=== PATIENT | female | born 1975 | race Two or more races ===

== ENCOUNTER 2018-06-30 15:15 | Emergency (ER) | payer MEDICAID ==
--- NOTE | 2018-06-30 16:08 | EDPHY ---
H & P Stated Complaint: Migraine c Hx of s/s, 3D s relief Time Seen by Provider: 06/30/18 16:07 - Personal History Current Tetanus/Diphtheria Vaccine: Unsure - Medical/Surgical History Hx Asthma: No Hx Chronic Respiratory Disease: No Hx Diabetes: No Hx Cardiac Disease: No Hx Renal Disease: No Hx Cirrhosis: No Hx Alcoholism: No Hx HIV/AIDS: No Hx Splenectomy or Spleen Trauma: No Other PMH: migraines - Social History Smoking Status: Never smoked Constitutional: Initial Vital Signs Temperature (C) 36.8 C 06/30/18 15:35 Heart Rate 63 06/30/18 15:35 Respiratory Rate 18 06/30/18 15:35 Blood Pressure 122/85 H 06/30/18 15:35 O2 Sat (%) 98 06/30/18 15:35 O2 Delivery Mode Room Air Allergies/Adverse Reactions: No Known Allergies Allergy (Unverified 06/30/18 15:34) Medical Decision Making - Diagnostics Imaging Results: Imaging Impressions Head MRA 06/30/18 16:16 Impression: Normal MRA of the [place] as detailed above. Findings discussed with Immanuel Gong MD at 18:15 hour, 06/30/2018. Neck MRA 06/30/18 16:16 Impression: 1. Normal MRA of the carotid and vertebral system. Note: All stenosis measurements are based on NASCET criteria. Findings forwarded to Immanuel Gong MD at 18:18 hour, 06/30/2018. Imaging: Discussed imaging studies w/ mail caller Radiologist, I viewed and interpreted images myself ED Course/Re-evaluation: CHIEF COMPLAINT: Migraine HISTORY OF PRESENT ILLNESS: 43-year-old female who has a longstanding history of migraine headaches. She has never had a significant neuro imaging workup. She went to an urgent care and saw the Dr. Prieto Whelan. Even though her headache is completely resolved Dr. Whelan recommended that she come here to get neuro imaging. She has no neurologic deficits. She has no other symptoms at all. She has had similar headaches throughout her entire life. They are usually resolve with outpatient medicine she has never come to the ER in her life for this. I have offered her medicine today but she does not want any does the headache resolved. REVIEW OF SYSTEMS: A comprehensive 10 system review of systems is otherwise negative aside from elements mentioned in the history of present illness and medical decision making. PHYSICAL EXAM: HR, BP, O2 Sat, RR. Temp noted General Appearance: Alert, well hydrated, appropriate, and non-toxic appearing. Head: Atraumatic without scalp tenderness or obvious injury Eyes: Pupils equal, round, reactive to light and accommodation, EOMI, no trauma , no injection. Ears: Clear bilaterally, no perforation, normal landmarks Nose: Atraumatic, no rhinorrhea, clear. Throat: There is no erythema or exudates, no lesions, normal tonsils, mucus membranes moist. Neck: Supple, 2+ carotid upstroke, nontender, no lymphadenopathy. Respiratory: No retractions, no distress, no wheezes, and no accessory muscle use. Lungs are clear to auscultation bilaterally. Cardiovascular: Regular rate and rhythm, no murmurs, rubs, or gallops. Bilateral carotid, radial, dorsalis pedis, and posterior tibial pulses intact. Good capillary refill all extremities. Gastrointestinal: Abdomen is soft, nontender, non-distended, no masses, no rebound, no guarding, no peritoneal signs. Musculoskeletal: Normal active ROM of all extremities, atraumatic. Neurological: Alert, appropriate, and interactive. The patient has normal DTRs and non-focal cranial nerves, motor, sensory, and cerebellar exam. Skin: No rashes, good turgor, no nodules on palpation. 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 No neurologic deficits Results: MRI scan of the brain and neck was obtained. The results of the study are normal. The study was read by the radiologist, Dr. George. I viewed the images myself on the PACS system. DIFFERENTIAL DIAGNOSIS: The differential diagnosis for the patient's headache included but was not limited to subarachnoid hemorrhage, migraine headache, tension headache and infectious causes such as meningitis, pharyngitis and sinusitis. MEDICAL DECISION MAKING: This patient has no symptoms whatsoever. This patient has no findings on physical exam that are abnormal. This patient does not want any medicine for headache. We will run an i-STAT Chem 8 to make sure she has normal kidney function and then I will perform an MRA of her head and neck. These MRAs were requested by Dr. Prieto Whelan who she just saw an urgent care. I believe she can have these as an outpatient frankly but that she was sent here specifically for this purpose by another physician. Imaging is normal. Reassessed patient and discussed findings. Neuro exam remains normal. Plan for neurology follow up and standard headache care instructions. Return precautions discussed. She is comfortable with this plan. - Data Points Laboratory Results: 06/30/18 16:25 POC Hgb 16.7 gm/dL H gm/dL (12.6-16.3) POC Hct 49 % H % (38-47) POC Sodium 140 mEq/L mEq/L (135-145) POC Potassium 3.4 mEq/L mEq/L (3.3-5.0) POC Chloride 101 mEq/L mEq/L (97-110) POC Total CO2 24 mEq/L mEq/L (22-31) POC BUN 10 mg/dL mg/dL (7-23) POC Creatinine 0.9 mg/dL mg/dL (0.6-1.0) POC Glucose 83 mg/dL mg/dL (70-100) Point of Care Test Results: Chemistry 06/30/18 16:25 POC Sodium 140 mEq/L mEq/L (135-145) POC Potassium 3.4 mEq/L mEq/L (3.3-5.0) POC Chloride 101 mEq/L mEq/L (97-110) POC Total CO2 24 mEq/L mEq/L (22-31) POC BUN 10 mg/dL mg/dL (7-23) POC Creatinine 0.9 mg/dL mg/dL (0.6-1.0) POC Glucose 83 mg/dL mg/dL (70-100) ISTAT H&H 06/30/18 16:25 POC Hgb 16.7 gm/dL H gm/dL (12.6-16.3) POC Hct 49 % H % (38-47) Departure - Departure Disposition: Home, Routine, Self-Care Clinical Impression: Migraine Qualifiers: Migraine type: unspecified Status migrainosus presence: without status migrainosus Intractability: not intractable Qualified Code(s): G43.909 - Migraine, unspecified, not intractable, without status migrainosus Condition: Good Instructions: Migraine Headache (ED) Additional Instructions: 1. Try Excedrin as directed on the packaging in case of recurrent headache. 2. Follow up with neurologist in the next week. 3. Return to the ED for any worsening of condition. Referrals: Jaspreet Osuna MD [Medical Doctor] - As per Instructions
[2018-06-30] MEDS ORDERED: GADOBUTROL 10 ML VIAL IVP ONE (16:55)
[2018-06-30 18:40] VITALS: BP 124/88
== END 2018-06-30 18:40 | disposition home or self-care (01) ==
DX: G43.909 Migraine, unspecified, not intractable, without status migrainosus (principal)
CPT/HCPCS: 82435-PO; 82565-PO; 82947-PO; 84132-PO; 84295-PO; 84520-PO; 85014-ER; A9585